=== PATIENT | female | born 1945 | race Caucasian/White ===

== ENCOUNTER 2018-05-29 08:30 | Emergency (ER) | payer OTHER ==
[~2018-05-29] VITALS: Ht 165.1 cm; Wt 50.8 kg
[2018-05-29] MEDS ORDERED: SINGULAIR 10MG10 MG (08:54)
== END 2018-05-29 11:47 | disposition home or self-care (01) ==
LOC: ER 08:30
DX: N30.81 Other cystitis with hematuria (principal); B96.29 Other Escherichia coli [E. coli] as the cause of diseases classified elsewhere

== ENCOUNTER 2018-06-02 14:27 | Outpatient (CLI) | payer OTHER ==
[~2018-06-02 14:27] MED LIST: SINGULAIR 10MG10 MG
== END 2018-06-02 14:29 | disposition home or self-care (01) ==
LOC: SONOGRAMA 14:27 → MAMO-SONO 14:45
DX: R31.9 Hematuria, unspecified (principal); R31.1 Benign essential microscopic hematuria

== ENCOUNTER 2020-06-26 12:47 | Outpatient (CLI) | payer OTHER | END 2020-06-26 12:57 | disposition home or self-care (01) | LOC: MAMO-SONO 12:47 | PROVIDERS: ATTEND Internal Medicine | DX: Z12.31 Encounter for screening mammogram for malignant neoplasm of breast (principal); Z87.898 Personal history of other specified conditions; N64.89 Other specified disorders of breast; J06.0 Acute laryngopharyngitis; J01.90 Acute sinusitis, unspecified; J20.8 Acute bronchitis due to other specified organisms; Z12.11 Encounter for screening for malignant neoplasm of colon; Z13.820 Encounter for screening for osteoporosis ==

== ENCOUNTER 2020-07-26 10:29 | Outpatient (CLI) | payer OTHER | END 2020-07-26 10:30 | disposition home or self-care (01) | LOC: NUCLEAR 10:29 | PROVIDERS: ATTEND Internal Medicine | DX: M81.0 Age-related osteoporosis without current pathological fracture (principal) ==

== ENCOUNTER 2021-04-04 17:53 | Emergency (ER) | payer OTHER ==
[~2021-04-04] VITALS: Ht 167.6 cm; Wt 56.7 kg
[2021-04-04] MEDS ORDERED: AMOX1TAB5 PO (22:24)
== END 2021-04-04 22:30 | disposition home or self-care (01) ==
LOC: ER 17:53
DX: S61.451A Open bite of right hand, initial encounter (principal); W54.0XXA Bitten by dog, initial encounter; Y92.9 Unspecified place or not applicable

== ENCOUNTER 2022-03-19 10:56 | Outpatient (CLI) | payer OTHER ==
[~2022-03-19 10:56] MED LIST changes: +AMOX1TAB5 PO
== END 2022-03-19 11:10 | disposition home or self-care (01) ==
LOC: SONOGRAMA 10:56
PROVIDERS: ATTEND Internal Medicine Cardiovascular Disease
DX: J45.20 Mild intermittent asthma, uncomplicated (principal); J31.0 Chronic rhinitis; J32.9 Chronic sinusitis, unspecified; M12.9 Arthropathy, unspecified

== ENCOUNTER 2022-09-26 13:58 | Outpatient (CLI) | payer OTHER | END 2022-09-26 14:10 | disposition home or self-care (01) | LOC: SONOGRAMA 13:58 | PROVIDERS: ATTEND Urology | DX: R33.9 Retention of urine, unspecified (principal) ==

== ENCOUNTER 2022-12-22 08:18 | Outpatient (CLI) | payer OTHER | END 2022-12-22 08:21 | disposition home or self-care (01) | LOC: MAMO-SONO 08:18 | PROVIDERS: ATTEND Internal Medicine Cardiovascular Disease | DX: N63.11 Unspecified lump in the right breast, upper outer quadrant (principal); Z12.31 Encounter for screening mammogram for malignant neoplasm of breast ==

== ENCOUNTER 2022-12-29 13:40 | Outpatient (CLI) | payer OTHER | END 2022-12-29 13:41 | disposition home or self-care (01) | LOC: NUCLEAR 13:40 | PROVIDERS: ATTEND Internal Medicine Cardiovascular Disease | DX: M81.0 Age-related osteoporosis without current pathological fracture (principal) ==

== ENCOUNTER 2023-08-27 07:36 | Outpatient (CLI) | payer OTHER | END 2023-08-27 07:43 | disposition home or self-care (01) | LOC: TOM 07:36 | PROVIDERS: ATTEND Internal Medicine Gastroenterology | DX: R10.13 Epigastric pain (principal); R10.33 Periumbilical pain; R10.31 Right lower quadrant pain ==

== ENCOUNTER 2023-09-15 07:33 | Outpatient (CLI) | payer OTHER | END 2023-09-15 07:44 | disposition home or self-care (01) | LOC: MRI 07:33 | PROVIDERS: ATTEND Internal Medicine Gastroenterology | DX: K86.9 Disease of pancreas, unspecified (principal); R93.3 Abnormal findings on diagnostic imaging of other parts of digestive tract | CPT/HCPCS: 72195; 74181 ==